=== PATIENT | female | born 1990 | race Caucasian/White ===

== ENCOUNTER 2022-01-18 13:26 | Emergency (ER) | payer OTHER ==
[2022-01-18 14:54] LABS: HEMOGLOBIN 13.2 gm/dl (12.3-15.3); RED BLOOD COUNT 4.57 M/UL (4.00-5.10); WHITE BLOOD COUNT 6.4 K/UL (4.5-11.0)
[2022-01-18 15:20] LABS: BUN/CREATININE RATIO 8 (0-10)
[2022-01-18] MEDS ORDERED: IBUPROFEN800 MG PO (17:22)
== END 2022-01-18 17:28 | disposition home or self-care (01) ==
LOC: ER1 13:26
PROVIDERS: Preventive Medicine Occupational Medicine
DX: R07.89 Other chest pain (principal); Z20.822 Contact with and (suspected) exposure to COVID-19
CPT/HCPCS: 0240U; 71045; 80053; 80307; 81001; 82550; 82553; 83880; 84484; 85025; 85379; 85652; 86140; 93005; 99285